=== PATIENT | male | born 2000 | race Caucasian/White ===

== ENCOUNTER 2024-03-12 22:49 | Emergency (ER) | payer OTHER ==
--- NOTE | 2024-03-12 23:42 | XRAY Report ---
PROCEDURE: Knee 3V LT INDICATIONS: fall, landed on knee on tile floor TECHNIQUE: 8014 views of the knee(s) were acquired. COMPARISON: None. FINDINGS: Bones: No fractures or dislocations. No suspicious bony lesions. Soft tissues: No knee joint effusion. No suspicious soft tissue calcifications or masses. IMPRESSION: No acute bony abnormality. Reviewed by: Ben Corea MD on 03/12/2024 11:41 PM PDT Approved by: Ben Corea MD on 03/12/2024 11:41 PM PDT Station ID: [id number]
--- NOTE | 2024-03-13 00:06 | ED Physician Documentation ---
PD HPI LOWER EXT INJURY - Stated complaint Stated Complaint: LT KNEE INJ - Chief complaint Chief Complaint: Ext Problem - History obtained from History obtained from: Patient - Additional information Additional information: HPI from patient. Patient c/o left knee pain, sudden onset 4 days ago while at work when he slipped on wet surface while carrying a bucket. As patient fell to ground, the bucket he was carrying struck his left knee, and then the knee struck the floor. He has had left knee pain since then which had improved but not resolved before gradually worsening again today while he was working again. Denies other injury. Knee pain is worse with palpation, weight-bearing. Has taken ibuprofen and tylenol without adequate relief. Denies numbness, weakness. PD PAST MEDICAL HISTORY - Past Medical History Past Medical History: No Psych: Depression - Past Surgical History Past Surgical History: No - Present Medications Home Medications: Ambulatory Orders Medication Instructions Recorded Confirmed traMADol [Ultram] 50 mg PO Q4-6H PRN #14 tablet 03/13/24 - Allergies Allergies/Adverse Reactions: Allergies Allergy/AdvReac Type Severity Reaction Status Date / Time No Known Drug Allergies Allergy Verified 03/12/24 23:09 - Social History Does the pt smoke?: No Smoking Status: Never smoker Does the pt drink ETOH?: Yes Does the pt have substance abuse?: No - Immunizations Immunizations are current?: Yes - POLST Patient has POLST: No PD ED PE NORMAL - Vitals Vital signs reviewed: Yes - General General: Alert and oriented X 3, No acute distress, Well developed/nourished - Extremities Extremities: No deformity, No edema PD ED PE EXPANDED - Extremities Extremities: Left knee (TTP medial and lateral aspects. no direct patellar tenderness. NELIDA but reports worsening of pain proportional to degree of flexion. trace swelling, no brusing nor abrasion) Results - Rads (name of study) left knee xrays Relevant Findings:: Prelim report reviewed, See rad report PD Medical Decision Making - ED course Complexity details: reviewed results, considered differential, d/w patient ED course: unremarkable left knee xrays. Provided crutches, knee immobilizer (placed by ED RN), and e-prescribed tramadol. Patient is driving home and thus immobilizer removed prior to d/c and not medicated in ED. Xray results, return precautions reviewed with patient. Departure - Departure Disposition: Home, Self Care Clinical Impression: Knee sprain Qualifiers: Encounter type: initial encounter Involved ligament of knee: unspecified ligament Laterality: left Qualified Code(s): S83.92XA - Sprain of unspecified site of left knee, initial encounter Condition: Good Instructions: ED Crutch Walking, ED Immobilizer Knee, ED Sprain Knee Prescriptions: traMADol [Ultram] 50 mg PO Q4-6H PRN #14 tablet PRN Reason: Moderate Pain (Level 4-6) Comments: There were no abnormalities on tonight's x-rays (specifically no evidence of any fracture nor dislocation). I have electronically submitted a prescription for tramadol (narcotic/opiate pain medication) to the [facility] pharmacy in [place]. As we discussed, I recommend that you contact your insurance carrier to request referral to a local primary care provider. Once you have obtained referral, contact a local primary care provider to arrange for follow-up/reevaluation of your knee injury, ideally within 7 to 10 days. I am prescribing a short course of narcotic pain medication for you. These are potentially dangerous and addictive medications that should be used carefully. These medications may constipate you. Take an dyjt-htr-jvberpk stool softener (docusate) twice daily with plenty of water while taking these medications. If you go 24 hours without a bowel movement, take eyxr-rzj-bpkzvre miralax, per package instructions. Do not drink or drive while taking these medications. If you received narcotic or sedating medications while in the emergency department, do not drive for 24 hours. Store this medication in a safe, secure place and out of reach of children. It is a violation of federal law to give or sell this medication to another person or to use in a manner other than prescribed. The ED will not refill narcotic prescriptions, including prescriptions lost or stolen. To dispose of unwanted medications: 1. [facility] at [address] in [place] has a medication drop box. They accept prescription medications (in pill form) Thursday through Thursday 9:00 a.m. to 5:00 p.m. 2. The [facility] [employer] accepts prescription medications (in pill form only) for disposal year round. Call for more information. 3. Contact the [facility] for the next [facility] sponsored prescription drug collection event. , [phone], or [phone]; Forms: Activity restrictions Discharge Date/Time: 03/13/24 00:45
[2024-03-13 00:55] VITALS: BP 124/68; O2SAT 98
== END 2024-03-13 00:45 | disposition home or self-care (01) ==
LOC: ED 22:49
DX: S83.92XA Sprain of unspecified site of left knee, initial encounter (principal); W01.0XXA Fall on same level from slipping, tripping and stumbling without subsequent striking against object, initial encounter
CPT/HCPCS: 1040M; 73562; 99283; 99284